=== PATIENT | female | born 1945 | race Caucasian/White ===

== ENCOUNTER 2020-08-10 11:34 | Inpatient (IN) | payer MEDICARE, OTHER ==
[~2020-08-10] VITALS: Ht 167.6 cm; Wt 51.7 kg
[~2020-08-10 11:34] MED LIST: AZELASTINE137 MCG/0.; BISACODYL10 MG PR; BUMETANIDE1 MG PO; CEFDINIR300 MG PO; COREG6.25 MG PO; DOCUSATE SODIU250 MG PO; HYDROCODON-ACE1 EAC4 PO; JANUVIA100 MG PO; K-DUR TAB 20 M20 MEQ PO; LACTULOSE10 GM/15 M PO; LIPITOR10 MG PO; LISINOPRIL10 MG PO; MEDROL4 MG PO; MELOXICAM7.5 MG PO; MUCUS RELIEF400 MG PO; MULTI-VITAMIN1 EACH PO; PHENERGAN 12.12.5 M1 PO; PREDNISONE5 MG PO; PROTONIX20 MG PO; SENNA LAX8.6 MG PO; SINGULAIR10 MG PO; STIOLTO RESPIMAT4 GM INH; SYNTHROID175 MCG PO; TRAZODONE HCL50 MG PO; VOLTAREN100 GM TP
[2020-08-10] MEDS ORDERED: K-PHOS NEUTRAL250 M1 PO (21:42)
[2020-08-10] MEDS ORDERED: IPRAT-ALBUT 0.5-3 ML INH (21:43)
[2020-08-10 23:23] LABS: ADENOVIRUS F 40/41 Not Detected (Negative); ASTROVIRUS Not Detected (Negative); CAMPYLOBACTER Not Detected (Negative); CLOSTRIDIUM DIFFICILE TOX A/B Not Detected (Negative); CRYPTOSPORIDIUM Not Detected (Negative); E.COLI 0157 Not Detected (Negative); ENTAMOEBA HISTOLYTICA Not Detected (Negative); ENTEROAGGREGATIVE E.COLI (EAEC Not Detected (Negative); ENTEROPATHOGENIC E.COLI (EPEC) Not Detected (Negative); ENTEROTOXIGENIC E.COLI (ETEC) Not Detected (Negative); GIARDIA LAMBLIA Not Detected (Negative); NOROVIRUS GI/GII Not Detected (Negative); PLESIOMONAS SHIGELLOIDES Not Detected (Negative); ROTOVIRUS A Not Detected (Negative); SALMONELLA Not Detected (Negative); SAPOVIRUS Not Detected (Negative); SHIG/ENTEROINVAS.ECOLI (EIEC) Not Detected (Negative); SHIGA-LIK TOX.PRO.E.COLI (STEC Not Detected (Negative); VIBRIO Not Detected (Negative); VIBRIO CHOLERAE Not Detected (Negative); YERSINIA ENTEROCOLITICA Not Detected (Negative)
[2020-08-11 06:01] LABS: RED BLOOD COUNT 3.48 M/UL (4.00-5.10); WHITE BLOOD COUNT 25.4 K/UL (4.5-11.0)
[2020-08-11 06:33] LABS: BUN/CREATININE RATIO 34 (0-10)
[2020-08-12 03:06] LABS: HEMOGLOBIN 9.5 gm/dl (12.3-15.3); WHITE BLOOD COUNT 22.2 K/UL (4.5-11.0)
[2020-08-12 03:25] LABS: RED BLOOD COUNT 3.03 M/UL (4.00-5.10)
[2020-08-12 03:26] LABS: BUN/CREATININE RATIO 26 (0-10)
[2020-08-13 03:37] LABS: HEMOGLOBIN 9.2 gm/dl (12.3-15.3); RED BLOOD COUNT 2.95 M/UL (4.00-5.10); WHITE BLOOD COUNT 23.4 K/UL (4.5-11.0)
[2020-08-13 04:20] LABS: BUN/CREATININE RATIO 15 (0-10)
[2020-08-14 12:16] LABS: WHITE BLOOD COUNT 19.4 K/UL (4.5-11.0)
[2020-08-14 12:20] LABS: HEMOGLOBIN 13.9 gm/dl (12.3-15.3); RED BLOOD COUNT 4.34 M/UL (4.00-5.10)
[2020-08-15 05:11] LABS: WHITE BLOOD COUNT 15.4 K/UL (4.5-11.0)
[2020-08-15 05:19] LABS: HEMOGLOBIN 11.5 gm/dl (12.3-15.3); RED BLOOD COUNT 3.66 M/UL (4.00-5.10)
[2020-08-15 05:33] LABS: BUN/CREATININE RATIO 22 (0-10)
[2020-08-16] MEDS ORDERED: CARVEDILOL12.5 MG PO (10:40)
[2020-08-16] MEDS ORDERED: HYDROCODON-ACE1 EAC4 PO (10:55)
[2020-08-16 11:33] LABS: HEMOGLOBIN 10.6 gm/dl (12.3-15.3); RED BLOOD COUNT 3.4 M/UL (4.00-5.10); WHITE BLOOD COUNT 16.2 K/UL (4.5-11.0)
[2020-08-16 11:48] LABS: BUN/CREATININE RATIO 23 (0-10)
== END 2020-08-16 14:25 | DRG 872 ==
LOC: M/S 21:23
PROVIDERS: Internal Medicine; ADMIT Internal Medicine
PROC: B24BZZZ Ultrasonography of Heart with Aorta (ICD-10-PCS; principal; 2020-08-15)
DX: A41.9 Sepsis, unspecified organism (principal); N30.00 Acute cystitis without hematuria; E87.3 Alkalosis; I50.32 Chronic diastolic (congestive) heart failure; Z68.1 Body mass index [BMI] 19.9 or less, adult; Z20.822 Contact with and (suspected) exposure to COVID-19; J44.9 Chronic obstructive pulmonary disease, unspecified; F17.210 Nicotine dependence, cigarettes, uncomplicated; I11.0 Hypertensive heart disease with heart failure; E03.9 Hypothyroidism, unspecified; E87.6 Hypokalemia; E11.9 Type 2 diabetes mellitus without complications; E78.5 Hyperlipidemia, unspecified; K21.9 Gastro-esophageal reflux disease without esophagitis; R63.6 Underweight; I25.10 Atherosclerotic heart disease of native coronary artery without angina pectoris; R53.81 Other malaise; E86.0 Dehydration; K52.9 Noninfective gastroenteritis and colitis, unspecified; Z90.49 Acquired absence of other specified parts of digestive tract; Z88.8 Allergy status to other drugs, medicaments and biological substances; Z95.5 Presence of coronary angioplasty implant and graft; Z86.73 Personal history of transient ischemic attack (TIA), and cerebral infarction without residual deficits; Z82.49 Family history of ischemic heart disease and other diseases of the circulatory system; Z79.890 Hormone replacement therapy; Z79.899 Other long term (current) drug therapy
CPT/HCPCS: ECHO; 36415; 80048; 84100; 85007; 85025; 85027; 87040; 87086; 87449; 87507; 93306; 94640; 94664; 94760; J1650; J2185; J2405; J2543; J7030; U0002